=== PATIENT | female | born 1990 | race Caucasian/White ===

== ENCOUNTER 2020-02-03 15:32 | Emergency (ER) | payer MEDICAID, OTHER ==
[~2020-02-03] VITALS: Ht 165.1 cm; Wt 139.1 kg
[~2020-02-03 15:32] MED LIST: ONDA4TAB12 PO
[2020-02-03 15:36] VITALS: BP 113/58
[2020-02-03] MEDS ORDERED: predniSONE 20 mg tablet PO ONE (16:15)
[2020-02-03] MEDS ORDERED: PRED10TA PO (16:16)
== END 2020-02-03 16:50 | disposition home or self-care (01) ==
LOC: ER 15:33
DX: L25.9 Unspecified contact dermatitis, unspecified cause (principal); Z72.89 Other problems related to lifestyle; Z88.8 Allergy status to other drugs, medicaments and biological substances; Z79.899 Other long term (current) drug therapy
CPT/HCPCS: 99283; J7512

== ENCOUNTER 2020-03-26 12:03 | Emergency (ER) | payer MEDICAID ==
[~2020-03-26] VITALS: Ht 165.1 cm; Wt 75.0 kg
[~2020-03-26 12:03] MED LIST changes: +PRED10TA PO
[2020-03-26 12:14] VITALS: BP 117/70
[2020-03-26] MEDS ORDERED: CefTRIAXone 250MG IM Kit w/LIDOcaine IM ONE (13:30)
[2020-03-26] MEDS ORDERED: azithromycin 250mg tablet PO ONE (13:30)
[2020-03-26] MEDS ORDERED: penicillin G benzathine 1.2 million unit/2ml syringe IM ONE (13:30)
[2020-03-26] MEDS ORDERED: LIDOcaine 2% 10ml TOPICAL JELLY (Urojet) MM ONE (15:20)
[2020-03-26 16:10] LABS: CLARITY,URINE CLOUDY (Clear); COLOR,URINE YELLOW (Yellow); GLUCOSE, URINE NEGATIVE (Neg); KETONES,URINE NEGATIVE (Neg); LEUKOCYTE ESTERASE ,URINE NEGATIVE (Neg); NITRITES, URINE POSITIVE (Neg); OCCULT BLOOD,URINE NEGATIVE (Neg); PH,URINE 6.5 (4.8-8.0); PROTEIN,URINE NEGATIVE (Neg)
[2020-03-26 16:11] LABS: UA COLLECTION TYPE CLN CATCH MIDSTREAM
[2020-03-26 16:12] LABS: URINE HCG NEGATIVE (NEG)
[2020-03-26] MEDS ORDERED: VALA100031 PO (16:20)
[2020-03-26] MEDS ORDERED: SULF1TAB49 PO (16:20)
[2020-03-26 16:21] LABS: MUCUS STRANDS MODERATE /LPF (Neg); SQUAMOUS EPITHELIAL CELL,UR FEW /LPF (FEW); TRANSITIONAL EPI CELLS,URINE FEW /HPF
[2020-03-26 16:22] LABS: BACTERIA,URINE 4+ /HPF (Neg); RBC,URINE 0-2 /HPF (0-2)
[2020-03-26 16:40] LABS: HIV ANTIBODY 1&2 RAPID NON-REACTIVE (Neg)
== END 2020-03-26 16:29 | disposition home or self-care (01) ==
LOC: ER 12:04
DX: B00.9 Herpesviral infection, unspecified (principal); N89.8 Other specified noninflammatory disorders of vagina; N39.0 Urinary tract infection, site not specified; L23.7 Allergic contact dermatitis due to plants, except food; Z72.89 Other problems related to lifestyle; Z59.0 Homelessness; Z88.8 Allergy status to other drugs, medicaments and biological substances; Z88.1 Allergy status to other antibiotic agents; Z79.899 Other long term (current) drug therapy
CPT/HCPCS: 36415; 81001; 81025; 86592; 86703; 87088; 87186; 87210; 87252; 87491; 87591; 96372; 99284; J0561; J0696; 87077

== ENCOUNTER 2020-10-21 13:14 | Emergency (ER) | payer MEDICAID ==
[~2020-10-21] VITALS: Ht 165.1 cm; Wt 75.9 kg
[~2020-10-21 13:14] MED LIST changes: +VALA100031 PO
[2020-10-21 13:23] VITALS: BP 121/71
[2020-10-21] MEDS ORDERED: ibuprofen tablet 400 MG TABLET PO ONE (13:40)
[2020-10-21] MEDS ORDERED: PENI500T2 PO (13:41)
[2020-10-21] MEDS ORDERED: IBUP-1984 PO (13:41)
== END 2020-10-21 13:53 | disposition home or self-care (01) ==
LOC: ER 13:15
DX: K02.9 Dental caries, unspecified (principal); K08.89 Other specified disorders of teeth and supporting structures; Z72.89 Other problems related to lifestyle; Z88.8 Allergy status to other drugs, medicaments and biological substances; Z79.2 Long term (current) use of antibiotics; Z79.899 Other long term (current) drug therapy
CPT/HCPCS: 99283

== ENCOUNTER 2024-05-04 12:40 | Emergency (ER) | payer MEDICAID ==
[~2024-05-04] VITALS: Ht 165.1 cm; Wt 81.8 kg
[~2024-05-04 12:40] MED LIST changes: +ONDA-243 PO; -ONDA4TAB12 PO
[2024-05-04] MEDS ORDERED: CEPH-585 PO (15:43)
[2024-05-04] MEDS ORDERED: MUPI30OI5 TP (15:43)
[2024-05-04 15:51] VITALS: BP 108/68; PULSE 78; RESP 14; TEMP 97.6; O2SAT 99
== END 2024-05-04 15:53 | disposition home or self-care (01) ==
LOC: ER 12:40
DX: L03.011 Cellulitis of right finger (principal); F17.200 Nicotine dependence, unspecified, uncomplicated; Z88.8 Allergy status to other drugs, medicaments and biological substances; Z79.52 Long term (current) use of systemic steroids; Z79.1 Long term (current) use of non-steroidal anti-inflammatories (NSAID); Z72.89 Other problems related to lifestyle
CPT/HCPCS: 10060; 99283; A6449